=== PATIENT | male | born 1970 | race Caucasian/White ===

== ENCOUNTER 2019-06-30 14:53 | Observation (INO) ==
[2019-06-30 16:50] LABS: Apearance,Urine Slightly Hazy (Clear); Bacteria,Urine Occasional /HPF (Few); Bilirubin,Urine Negative (Negative); Blood, Urine Small mg/dL (Negative); Glucose,Urine (UA) Negative (Negative); Ketones,Urine 5 mg/dL (Negative); Mucus,Urine Occasional /LPF (Occasional); Nitrite,Urine Negative (Negative); Protein,Urine Negative; RBC,Urine 46 /HPF (0-4); Squamous Epithelial Cell,Urine Occasional /HPF (0-10); Urine Color Yellow (Yellow); Urine Specific Gravity 1.026 (1.001-1.035); WBC,Urine 177 /HPF (0-6)
[2019-06-30 16:53] LABS: Barbiturates Screen,Urine Negative (Negative); Benzodiazepines Screen,Urine Negative (Negative); Cannabinoid Screen,Urine Positive (Negative); Opiate Screen,Urine Negative (Negative); Phencyclidine Screen,Urine Negative (Negative)
[2019-06-30] MEDS ORDERED: SODIUM CHLORIDE 0.9% 1,000 ML IV STA (16:58)
[2019-06-30 17:43] LABS: Basophils % 0.3 % (0.0-0.8); Eosinophils # 0.4 10*3/uL (0.0-0.87); Eosinophils % 5.7 % (0.00-10.9); Hematocrit 34.4 VOL% (42.0-52.0); Hemoglobin 11.5 GM/DL (14.0-18.0); Immature Granulocytes % 0.3 %; Immature Granulocytes Absolute 0.02 #; Lymphocytes # 3.5 10*3/uL (1.4-4.0); Lymphocytes % 45.4 % (21.2-54.2); Mean Corpuscular HGB Conc 33.4 GM/DL (32-36); Mean Corpuscular Volume 94.2 FL (87-102); Mean Platelet Volume 8.5 FL (9.6-12.0); Monocytes % 10.2 % (1.7-12.7); Neutrophils % 38.1 % (38.7-73.9); Platelet Count 386 T/CUMM (130-400); Red Blood Count 3.65 MC/CUMM (3.8-5.5); Red Cell Distribution Width 13.3 % (9.3-17.3); White Blood Count 7.7 T/CUMM (4-12)
[2019-06-30 17:58] LABS: Alanine Aminotransferase 48 U/L (16-61); Albumin 3.7 G/DL (3.4-5.0); Alkaline Phosphatase 132 U/L (45-117); Amylase 83 U/L (25-115); Aspartate Amino Transferase 38 U/L (0-37); Bilirubin,Total < 0.39 MG/DL (0.2-1.0); Blood Urea Nitrogen 12 MG/DL (7-18); Calcium 9.4 MG/DL (8.5-10.1); Estimated Glom Filtration Rate 96 ML/MIN; Glucose 89 MG/DL (74-106); Osmolality,Calculated 279.3 MOS/KG (273-304); Total Protein 7.6 G/DL (6.4-8.3)
[2019-06-30 18:53] LABS: Eosinophils 3 % (0-10); Lymphocytes 42 % (20-55); Platelet Estimate Adequate; Segmented Neutrophils 46 % (50-85); Total Cells Counted 100
[2019-06-30] MEDS ORDERED: ONDANSETRON 4 MG/2 ML VIAL IV PRN (21:32)
[2019-06-30] MEDS ORDERED: PROMETHAZINE 25 MG/1 ML VIAL IM PRN (21:32)
[2019-06-30] MEDS ORDERED: ACETAMINOPHEN 325 MG TABLET PO PRN (21:32)
[2019-06-30] MEDS ORDERED: HYDROmorphone 2 MG/1 ML VIAL IV PRN (21:32)
[2019-06-30] MEDS: SODIUM CHLORIDE 0.45% 1,000 ML IV SCH (22:25)
[2019-06-30] MEDS: PIPERACILLIN/TAZOBACTAM 3,375 MG in SODIUM CHLORIDE 0.9% 100 ML IV SCH (22:33)
[2019-07-01] MEDS: SODIUM CHLORIDE 0.45% 1,000 ML IV SCH ×3 (05:32→14:55)
[2019-07-01] MEDS: PIPERACILLIN/TAZOBACTAM 3,375 MG in SODIUM CHLORIDE 0.9% 100 ML IV SCH (05:35)
[2019-07-01] MEDS ORDERED: cefOXitin 2,000 MG in SYRINGE 1 EACH IV ONE (07:30)
[2019-07-01] MEDS ORDERED: DIAZEPAM 5 MG TABLET PO ONE (07:37)
[2019-07-01] MEDS: PANTOPRAZOLE 40 MG TABLET PO SCH ×2 (07:52→08:19)
[2019-07-01] MEDS ORDERED: TISSUE ADHESIVE 1 EACH APPLICATOR TOP ONE (08:36)
[2019-07-01] MEDS ORDERED: LIDOCAINE 1%/EPI INJ 20 ML VIAL ONE (08:36)
[2019-07-01] MEDS ORDERED: DIAZEPAM 5 MG TABLET PO PRN (09:08)
[2019-07-01] MEDS ORDERED: SUGAMMADEX 200 MG/2 ML VIAL IV ONE (09:40)
[2019-07-01] MEDS ORDERED: PROPOFOL 200 MG/20 ML VIAL IV ONE (10:01)
[2019-07-01] MEDS ORDERED: MIDAZOLAM 2 MG/2 ML VIAL ONE (10:01)
[2019-07-01] MEDS ORDERED: LIDOCAINE 2% 5 ML VIAL ONE (10:01)
[2019-07-01] MEDS ORDERED: SEVOFLURANE 1 UNIT/15 MINUTE INH ONE (10:01)
[2019-07-01] MEDS ORDERED: ROCURONIUM 100 MG/10 ML VIAL IV ONE (10:02)
[2019-07-01] MEDS ORDERED: ACETAMINOPHEN 1,000 MG/100 ML VIAL IV ONE (10:02)
[2019-07-01] MEDS ORDERED: ONDANSETRON 4 MG/2 ML VIAL ONE (10:02)
[2019-07-01] MEDS ORDERED: PHENYLEPHRINE 1 MG/10 ML SYRINGE IV ONE (10:02)
[2019-07-01] MEDS ORDERED: fentaNYL 100 MCG/2 ML VIAL ONE (10:02)
[2019-07-01] MEDS ORDERED: SUCCINYLCHOLINE 200 MG/10 ML VIAL ONE (10:02)
[2019-07-01] MEDS ORDERED: ONDANSETRON 4 MG/2 ML VIAL IV PRN ×2 (10:06→10:20)
[2019-07-01] MEDS: HYDROmorphone 2 MG/1 ML VIAL IV PRN ×2 (10:10→10:15)
[2019-07-01] MEDS ORDERED: HYDROmorphone 2 MG/1 ML VIAL IV PRN (10:20)
[2019-07-01] MEDS ORDERED: LORazepam 2 MG/1 ML VIAL IV ONE (11:58)
[2019-07-01] MEDS ORDERED: SIMETHICONE CHEW 80 MG TABLET PO PRN (11:59)
[2019-07-01] MEDS ORDERED: GABAPENTIN 300 MG CAPSULE PO SCH (15:00)
[2019-07-01 15:58] VITALS: BP 112/74
[2019-07-01] MEDS ORDERED: MIRTAZAPINE 30 MG TABLET PO SCH (21:00)
[2019-07-02] MEDS ORDERED: LISINOPRIL 10 MG TABLET PO SCH (09:00)
== END 2019-07-01 16:12 | disposition home or self-care (01) ==
LOC: N.ED 14:53 → N.EDINP 14:53 → N.3E 20:58
PROVIDERS: ADMIT Surgery; ATTEND Surgery
PROC: LAPCHOL (2019-07-01 08:40)